=== PATIENT | male | born 1975 ===

== ENCOUNTER 2022-02-15 22:49 | Emergency (ER) | payer OTHER ==
[~2022-02-15] VITALS: Ht 177.8 cm; Wt 77.1 kg
[2022-02-16] MEDS ORDERED: CELEXA40 M1 PO (00:44)
[2022-02-16] MEDS ORDERED: PRED20 PO (00:51)
== END 2022-02-16 00:50 | disposition home or self-care (01) ==
LOC: ER 22:49
DX: J30.1 Allergic rhinitis due to pollen (principal); Z79.899 Other long term (current) drug therapy
CPT/HCPCS: 99282; A9270; J7512